=== PATIENT | male | born 1960 | race Caucasian/White ===

== ENCOUNTER 2021-05-31 19:40 | Inpatient (IN) | payer BC, SELFPAY ==
[2021-05-31] VITALS (16 sets, daily range): BP systolic 137–157; BP diastolic 96–106; PULSE 98–108; RESP 16–18; TEMP 37.1; O2SAT 94–97; BMI 35.9
--- NOTE | 2021-05-31 20:16 | CTR_ITS ---
PROCEDURE INFORMATION: Exam: CT Abdomen And Pelvis With Contrast Exam date and time: 05/31/2021 8:16 PM Age: 60 years old Clinical indication: Abdominal pain; Localized; Left; Prior surgery; Surgery date: 6+ months; Surgery type: Gb; Patient HX: C/O sudden onset L sided abd pain TECHNIQUE: Imaging protocol: Computed tomography of the abdomen and pelvis with contrast. Radiation optimization: All CT scans at this facility use at least one of these dose optimization techniques: automated exposure control; mA and/or kV adjustment per patient size (includes targeted exams where dose is matched to clinical indication); or iterative reconstruction. Contrast material: OMNI 300; Contrast volume: 95 ml; Contrast route: INTRAVENOUS (IV); COMPARISON: No relevant prior studies available. RADIATION DOSE METRICS: Total DLP (mGy-cm): 78 FINDINGS: Liver: Normal. No mass. Gallbladder and bile ducts: The gallbladder has been removed. Pancreas: Mild fatty atrophy of the pancreas. Spleen: Normal. No splenomegaly. Adrenal glands: Normal. No mass. Kidneys and ureters: There are patchy wedge-shaped regions of hypoenhancement in the left kidney. 13 mm cyst in the right kidney has benign features. No further workup recommended. Stomach and bowel: Unremarkable. No obstruction. No mucosal thickening. Appendix: No evidence of appendicitis. Intraperitoneal space: Unremarkable. No free air. No significant fluid collection. Vasculature: Unremarkable. No abdominal aortic aneurysm. Lymph nodes: Unremarkable. No enlarged lymph nodes. Urinary bladder: See Reproductive finding. Reproductive: Prostate gland indents the base of the bladder consistent with median lobe enlargement. 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 Resultant grade 1 spondylolisthesis at L5-S1. There are degenerative changes in the visualized spine. Lower lumbar broad-based disc osteophyte complexes contribute to canal and bilateral neural foraminal narrowing. Soft tissues: Small fat containing umbilical hernia. CT/CT abdomen pelvis w con* [id number] IMPRESSION: There are wedge-shaped regions of hypoenhancement in the left kidney. In the setting of sudden onset of left-sided abdominal pain, top differential is renal infarcts. Differential includes renal scarring and pyelonephritis as well. COMMENTS: Consistent with the [employer]'s Incidental Findings Committee white paper (J Am Dwayne Radiol 2018): Any incidental renal lesion less than 1 cm or classified as too small to characterize, or any incidental cystic renal lesion characterized as simple-appearing, is likely benign. No follow-up imaging is recommended for these lesions per consensus recommendations based on imaging criteria. Radiation Dose CTDIVOL = (mGy): DLP = 2016.78 (mGy-cm)
--- NOTE | 2021-05-31 20:23 | W.ED.ABDPA2 ---
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 States it is sharp in nature started roughly 2 hours ago. States pain is a 7 out of 10 denies any worsening improving factors. Denies any vomiting or diarrhea denies any fevers. He denies having pain like this before. Denies any difficulty urinating or pain with urination. He also has a abscess to his left wrist he states been there for 7 days at its been actively draining. Associated Symptoms: Denies chills, diarrhea, dysuria, fever(s), nausea and vomiting Review of Systems Const: Denies: fever(s), chills, body aches or change in appetite Eyes: Denies: blurry vision or eye discomfort ENMT: Denies: throat pain or dental pain Card: Denies: chest pain Resp: Denies: dyspnea GI: Reports: abdominal pain; Denies: nausea, vomiting or diarrhea : Denies: dysuria Musc: Denies: neck pain or back pain Skin/Breast: Denies: rash Neuro: Denies: headache(s) Psych: Denies: depression Guero/Lymph: Denies: easy bruising All/Imm: Denies: urticaria Physical Exam Const: COMMON NORMALS: no acute distress, patient oriented x3 and healthy appearing HENMT: COMMON NORMALS: normocephalic and atraumatic HEAD & SCALP: normocephalic and atraumatic Eye: COMMON NORMALS: Equal, round and reactive pupils present and EOMs intact bilaterally PUPIL: Yes Equal, round and reactive pupils present Neck/C-Spine: COMMON NORMALS: full ROM and supple Chest: COMMONS NORMALS: normal inspection of the chest and normal palpation of entire chest wall Resp: COMMON NORMALS: normal respiratory effort, No retractions, No use of accessory muscles and clear to auscultation bilaterally AUSCULTATION: clear to auscultation bilaterally Cardio: COMMON NORMALS: regular rate, regular rhythm and No murmurs present (Cardio) RATE: regular rate RHYTHM: regular rhythm GI: COMMON NORMALS: Normal to inspection, nondistended, normoactive bowel sounds present, Soft to palpation and no masses PALPATION: Yes Soft to palpation and Yes Tenderness to palpation present (GI) Details: LLQ Extremity: COMMON NORMALS: normal to inspection and full ROM Neuro: COMMON NORMALS: patient oriented x3, moves all extremities and no focal motor deficits Psych: COMMON NORMALS: mental status grossly normal, Normal thought process present and cooperative THOUGHT PROCESS: Normal thought process present Skin: COMMON NORMALS: no rashes or lesions noted NARRATIVE SKIN EXAM: Small less than 1 cm abscess to left wrist that is open and draining GENERAL SKIN EXAM: no rashes or lesions noted Course Vital Signs: Vital signs: Vital Signs Temperature 98.7 F 05/31/21 20:06 Pulse Rate 108 H 05/31/21 20:43 Respiratory Rate 16 05/31/21 20:43 Blood Pressure 137/96 05/31/21 23:30 Pulse Oximetry 96 05/31/21 21:30 MDM - Abdominal Pain MDM Narrative: Medical decision making narrative: Patient presents here with left-sided abdominal pain CT does show a renal infarction. Will start patient on Lovenox EKG shows no signs of A. fib. I spoke to hospitalist will admit. Lab Data: Labs: Lab Results 05/31/21 05/31/21 05/31/21 20:35 20:35 21:22 WBC 9.8 10^3/uL 10^3/ uL (4.0-10.0) RBC 5.56 10^6/uL H 10 ^6/uL (4.1-5.3) Hgb 15.6 g/dL g/dL (11.7-16.6) Hct 47.1 % % (42.0-52.0) MCV 84.7 fl fl (80-94) MCH 28.1 pg pg (28.0-34.0) MCHC 33.1 g/dL g/dL (30.0-36.0) RDW 13.2 % % (12.1-15.1) Plt Count 240 10^3/cmm 10^3 /cmm (130-400) MPV 8.7 fL fL (7.4-10.4) Neut % (Auto) 83.6 % % Lymph % (Auto) 9.9 % % [place] % (Auto) 5.6 % % Eos % (Auto) 0.3 % % Baso % (Auto) 0.3 % % Neut # (Auto) 8.18 10^3/uL H 10 ^3/uL (1.8-7.7) Lymph # (Auto) 1.0 10^3/uL 10^3/ uL (0.8-4.8) [place] # (Auto) 0.6 10^3/uL 10^3/ uL (0.2-0.9) Eos # (Auto) 0.0 10^3/uL 10^3/ uL (0.0-0.8) Baso # (Auto) 0.0 10^3/uL 10^3/ uL (0.0-0.1) Nucleated RBC % (a uto) 0 % % Nucleated RBCs # 0.0 /100WBC /100W BC PT 14.10 SECONDS SEC ONDS (12.1-14.9) INR 1.06 (0.8-1.2) Sodium 134 mmol/L L mmol /L (136-145) Potassium 5.1 mmol/L mmol/L (3.5-5.1) Chloride 98 mmol/L mmol/L (98-107) Carbon Dioxide 24 mmol/L mmol/L (22-29) Anion Gap 17.1 (5-19) BUN 13 mg/dL mg/dL (6-20) Creatinine 1.0 mg/dL mg/dL (0.7-1.2) GFR Calculation 76.7 mL/min L mL/ min (90-130) Glucose 162 mg/dL H mg/dL (65-115) Calculated Osmolal ity 282 mOsm/kg L mOs m/kg (285-295) Calcium 9.2 mg/dL mg/dL (8.5-10.5) Total Bilirubin 0.6 mg/dL mg/dL (0.15-1.2) AST 26 U/L U/L (0-40) ALT 38 U/L U/L (0-41) Alkaline Phosphata se 81 IU/L IU/L (40-130) Total Protein 7.4 g/dL g/dL (6.6-8.7) Albumin 4.4 g/dL g/dL (3.5-5.2) Globulin 3.0 g/dL g/dL (1.3-4.6) Lipase 22 U/L U/L (13-60) Urine Color Urine Appearance Urine pH Ur Specific Gravit y Urine Protein Urine Glucose (UA) Urine Ketones Urine Blood Urine Nitrate Urine Bilirubin Urine Urobilinogen Ur Leukocyte Mildred ase 05/31/21 22:28 WBC RBC Hgb Hct MCV MCH MCHC RDW Plt Count MPV Neut % (Auto) Lymph % (Auto) [place] % (Auto) Eos % (Auto) Baso % (Auto) Neut # (Auto) Lymph # (Auto) [place] # (Auto) Eos # (Auto) Baso # (Auto) Nucleated RBC % (a uto) Nucleated RBCs # PT INR Sodium Potassium Chloride Carbon Dioxide Anion Gap BUN Creatinine GFR Calculation Glucose Calculated Osmolal ity Calcium Total Bilirubin AST ALT Alkaline Phosphata se Total Protein Albumin Globulin Lipase Urine Color Yellow (Yellow) Urine Appearance Clear (CLEAR) Urine pH 6.5 (5-7) Ur Specific Gravit y 1.010 (1.005-1.030) Urine Protein Neg (Negative) Urine Glucose (UA) Norm (Normal) Urine Ketones Negative (Negative) Urine Blood Neg (Negative) Urine Nitrate Negative (Negative) Urine Bilirubin Neg (Negative) Urine Urobilinogen 1 mg/dL H mg/dL (Negative) Ur Leukocyte Mildred ase Negative (Negative) Imaging Data ^: CT Abd/Pel: Attestation: I personally reviewed and interpreted this imaging study as follows: Radiologist's impression: [address] [address] [address] Scan Report Signed with Carey Patient: Ten Fournier Unit #: [id number] : 1960 Age/Sex: 60 / M ADM Date: 05/31/21 Loc: ER Room/Bed: Attending Dr: Ordering Provider/Ordering MD: Manuel Stark MD Date of Service: 05/31/21 Procedure(s): CT abdomen pelvis w con* [id number] Accession Number(s): [id number] Report Number: [id number]/CT abdomen pelvis w con* [id number] CRITICAL RESULT: The study was personally discussed on the telephone with MANUEL Lund on 05/31/2021 11:15 PM CDT. The results were understood and acknowledged. Radiation Dose CTDIVOL = (mGy): DLP = 2016.78 (mGy-cm) Addendum Dictated By: Zina Basurto MD Addendum Signed By: Zina Basurto MD Signed Date/Time: 05/31/21 1067 Addendum Cosigned By: PROCEDURE INFORMATION: Exam: CT Abdomen And Pelvis With Contrast Exam date and time: 05/31/2021 8:16 PM Age: 60 years old Clinical indication: Abdominal pain; Localized; Left; Prior surgery; Surgery date: 6+ months; Surgery type: Gb; Patient HX: C/O sudden onset L sided abd pain TECHNIQUE: Imaging protocol: Computed tomography of the abdomen and pelvis with contrast. Radiation optimization: All CT scans at this facility use at least one of these dose optimization techniques: automated exposure control; mA and/or kV adjustment per patient size (includes targeted exams where dose is matched to clinical indication); or iterative reconstruction. Contrast material: OMNI 300; Contrast volume: 95 ml; Contrast route: INTRAVENOUS (IV); COMPARISON: No relevant prior studies available. RADIATION DOSE METRICS: Total DLP (mGy-cm): 2016.78 FINDINGS: Liver: Normal. No mass. Gallbladder and bile ducts: The gallbladder has been removed. Pancreas: Mild fatty atrophy of the pancreas. Spleen: Normal. No splenomegaly. Adrenal glands: Normal. No mass. Kidneys and ureters: There are patchy wedge-shaped regions of hypoenhancement in the left kidney. 13 mm cyst in the right kidney has benign features. No further workup recommended. Stomach and bowel: Unremarkable. No obstruction. No mucosal thickening. Appendix: No evidence of appendicitis. Intraperitoneal space: Unremarkable. No free air. No significant fluid collection. Vasculature: Unremarkable. No abdominal aortic aneurysm. Lymph nodes: Unremarkable. No enlarged lymph nodes. Urinary bladder: See Reproductive finding. Reproductive: Prostate gland indents the base of the bladder consistent with median lobe enlargement. 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 Resultant grade 1 spondylolisthesis at L5-S1. There are degenerative changes in the visualized spine. Lower lumbar broad-based disc osteophyte complexes contribute to canal and bilateral neural foraminal narrowing. Soft tissues: Small fat containing umbilical hernia. CT/CT abdomen pelvis w con* [id number] IMPRESSION: There are wedge-shaped regions of hypoenhancement in the left kidney. In the setting of sudden onset of left-sided abdominal pain, top differential is renal infarcts. Differential includes renal scarring and pyelonephritis as well. COMMENTS: Consistent with the [employer]'s Incidental Findings Committee white paper (J Am Dwayne Radiol 2018): Any incidental renal lesion less than 1 cm or classified as too small to characterize, or any incidental cystic renal lesion characterized as simple-appearing, is likely benign. No follow-up imaging is recommended for these lesions per consensus recommendations based on imaging criteria. Radiation Dose CTDIVOL = (mGy): DLP = 2016.78 (mGy-cm) Dictated By: Zina Basurto MD Signed By: Zina Basurto MD Signed Date/Time: 05/31/212239 DD/ 15 EKG Data ^: EKG 1: Attestation: I personally reviewed and interpreted this EKG as follows: EKG interpretation date: 05/31/21 EKG interpretation time: 22:56 Interpretation: nsr hr [address] or t wave abnormalities qrs 104 qtc 376 Discharge Plan Discharge Patient Disposition: Admitted As Inpatient Admit Provider: Jennifer Laura Clinical Impression: Infarction of kidney Condition: Stable Coding Level of Care Code ED Seed Laboratory Assistant for Chg Fwd Exam Comprehensive
[2021-05-31] MEDS: morphine 4 mg/mL SDV 1 mL IVP (20:28)
[2021-05-31] MEDS: ondansetron 2 mg/ML SDV 2 mL 4 MG IVP (20:28)
[2021-05-31 20:49] LABS: Basophils % 0.3 %; Eosinophils % 0.3 %; Hematocrit 47.1 % (42.0-52.0); Hemoglobin 15.6 g/dL (11.7-16.6); Lymphocytes % 9.9 %; Mean Corpuscular HGB Conc 33.1 g/dL (30.0-36.0); Mean Corpuscular Hemoglobin 28.1 pg (28.0-34.0); Mean Corpuscular Volume 84.7 fl (80-94); Mean Platelet Volume 8.7 fL (7.4-10.4); Monocytes # 0.6 10^3/uL (0.2-0.9); Monocytes % 5.6 %; Neutrophils # 8.18 10^3/uL (1.8-7.7); Neutrophils % 83.6 %; Nucleated Red Blood Cells % 0 %; Platelet Count 240 10^3/cmm (130-400); Red Blood Count 5.56 10^6/uL (4.1-5.3); Red Cell Distribution Width 13.2 % (12.1-15.1); White Blood Count 9.8 10^3/uL (4.0-10.0)
[2021-05-31 21:10] LABS: Alanine Aminotransferase 38 U/L (0-41); Albumin Level 4.4 g/dL (3.5-5.2); Alkaline Phosphatase 81 IU/L (40-130); Anion Gap 17.1 (5-19); Aspartate Amino Transferase 26 U/L (0-40); Blood Urea Nitrogen 13 mg/dL (6-20); Calcium 9.2 mg/dL (8.5-10.5); Carbon Dioxide 24 mmol/L (22-29); Chloride 98 mmol/L (98-107); Glomerular Filtration Rate 76.7 mL/min (90-130); Glucose 162 mg/dL (65-115); Lipase 22 U/L (13-60); Osmolality Calculated 282 mOsm/kg (285-295); Potassium 5.1 mmol/L (3.5-5.1); Sodium 134 mmol/L (136-145); Total Bilirubin 0.6 mg/dL (0.15-1.2); Total Protein 7.4 g/dL (6.6-8.7)
[2021-05-31] MEDS: iohexol 300 mg/mL 100 mL Btl IV (21:22)
--- NOTE | 2021-05-31 22:50 | ECG_ITS ---
[facility] Test Date: 2021-05-31 Pat Name: Ten Fournier Department: Room: Gender: Male Bisque Brusher: : 1960 Requested By: Michelle Stark Order Number: [id number] Enmanuel MD: Melyssa Infante M.D. Measurements Intervals [place] Rate: 86 P: 7 SD: 199 QRS: 41 QRSD: 104 T: 24 QT: 333 QTc: 400 Interpretive Statements SINUS RHYTHM POSSIBLE RIGHT VENTRICULAR CONDUCTION DELAY [RSR (QR) IN V1/V2] No previous ECG available for comparison Electronically Signed On 06-01-2021 21:06:47 CDT by Melyssa Infante M.D. [id number]
[2021-05-31 22:55] LABS: Add Urine Microscopic? NO; Charge for UA Resulting for Rev
[2021-05-31 22:59] LABS: Bilirubin Urine Neg (Negative); Blood Urine Neg (Negative); Glucose Urine UA Norm (Normal); Ketones Urine Negative (Negative); Leukocyte Esterase Urine Negative (Negative); Nitrate Urine Negative (Negative); Protein Urine Neg (Negative); Urine Appearance Clear (CLEAR); Urine Color Yellow (Yellow); Urobilinogen Urine 1 mg/dL (Negative); pH Urine 6.5 (5-7)
[2021-05-31 23:02] LABS: INR 1.06 (0.8-1.2)
[2021-05-31] MEDS: enoxaparin 120 mg/0.8 mL Syringe SUBCUT (23:41)
[2021-06-01] VITALS (8 sets, daily range): BP systolic 119–164; BP diastolic 78–97; PULSE 78–100; RESP 16–18; TEMP 36.4–37.3; O2SAT 95–98; BMI 35.9
--- NOTE | 2021-06-01 02:26 | P.HP_ITS ---
Providers/Chief Complaint Admitting Physician: Jennifer Laura Chief Complaint: ABD Pain Sharp History of Present Illness 60-year-old male with no significant past medical history who presented to the hospital with abdominal pain. Acute onset. Primarily left lower quadrant. Noted nausea however no emesis. Subjective fever and chills. Denies chest pain or shortness of breath. Condition noted to have left hand pain, redness, and area of drainage from recent bug bite. He felt it may have been from a spider about 4 days prior. Noted increase in hand swelling as well. Laboratory workup on arrival showed a WBC of 9.8, hemoglobin of 15.6, hematocrit 47.1 and platelet count 240. INR 1.06. Sodium 134, potassium 5.1, chloride 98, bicarb 24, BUN 13 creatinine 1.0. LFTs and urinalysis within normal limits. CT of abdomen pelvis with contrast showed a wedge-shaped regions of hypo enhancement in the left kidney suspected to be renal infarcts. Review of Systems General: Reports: 10 or more systems reviewed and unremarkable except in HPI and below PFSH Acute PFSH: Medical History No pertinent family history No pertinent past medical history Surgical History No pertinent past surgical history Vitals/I&O/Wt Last Vital Signs Temp 98.5 F 06/01/21 00:07 Pulse 89 06/01/21 00:07 Resp 18 06/01/21 00:07 BP 154/96 06/01/21 00:07 Pulse Ox 97 06/01/21 00:07 Weight last 48 hrs Weight 127.006 kg Weight 127.006 kg Physical Exam Narrative: EXAM NARRATIVE: General: alert, awake on RA HEENT: Grossly unremarkable CVS: NSR Chest: nonlabored respiration Abd: Non-distended, mild tenderness to deep palpation on left Ext : no lower extremity edema, left hand wound with central eschar, surrounding erythema, with hand swelling Data : 05/31/21 20:35 05/31/21 20:35 A&P Additional A&P Information Acute abdominal pain due to suspected left renal infarct Possible due to thromboembolism Lovenox 1mg/kg/q12hr ordered Monitor on tele ? no known hx of afib May need event monitor at discharge Work up for occult arrythmia Left hand cellulitis with possible abscess Blood culture x 2 Rocephin 2g IV q24hr No hx of MRSA Wound culture May consider non-vascular US Procalcitonin in am DVT ppx Lovenox as noted above. Attestations Medical Necessity Statement*: Anticipate over 2 midnights stay in hospital for evaluation treatment Time Spent in Patient Care: Greater than 35 minutes (>than 50% of time spent in counselling and/or direct pt care on unit) . 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
[2021-06-01] MEDS: sodium chloride 0.9% 1,000 ML 75 ML IV ×2 (06:20→19:37)
[2021-06-01] MEDS: cefTRIAXone 2,000 MG in sodium chloride 0.9% (plus) 50 ML 100 MG IV (06:20)
[2021-06-01 07:49] LABS: Basophils % 0.6 %; Eosinophils # 0.1 10^3/uL (0.0-0.8); Eosinophils % 0.8 %; Hematocrit 45.5 % (42.0-52.0); Hemoglobin 15.1 g/dL (11.7-16.6); Lymphocytes # 1.5 10^3/uL (0.8-4.8); Lymphocytes % 23.2 %; Mean Corpuscular HGB Conc 33.2 g/dL (30.0-36.0); Mean Corpuscular Volume 84.3 fl (80-94); Mean Platelet Volume 8.8 fL (7.4-10.4); Monocytes # 0.6 10^3/uL (0.2-0.9); Monocytes % 9.6 %; Neutrophils # 4.14 10^3/uL (1.8-7.7); Neutrophils % 65.5 %; Nucleated Red Blood Cells % 0 %; Platelet Count 250 10^3/cmm (130-400); Red Cell Distribution Width 13.5 % (12.1-15.1); White Blood Count 6.3 10^3/uL (4.0-10.0)
[2021-06-01 08:16] LABS: Procalcitonin 0.19 ng/mL (0-0.5); Thyroid Stimulating Hormone 1.35 uIU/mL (0.27-4.20)
[2021-06-01 08:27] LABS: Alanine Aminotransferase 57 U/L (0-41); Albumin Level 4.1 g/dL (3.5-5.2); Alkaline Phosphatase 88 IU/L (40-130); Anion Gap 14.2 (5-19); Aspartate Amino Transferase 101 U/L (0-40); Blood Urea Nitrogen 13 mg/dL (6-20); Calcium 8.9 mg/dL (8.5-10.5); Carbon Dioxide 26 mmol/L (22-29); Chloride 99 mmol/L (98-107); Chol HDL Ratio 3.46 mg/dL (1.0-5.00); Cholesterol 128 mg/dL (0-200); Globulin 2.7 g/dL (1.3-4.6); Glomerular Filtration Rate 86.7 mL/min (90-130); Glucose 114 mg/dL (65-115); HDL Cholesterol 37 mg/dL (60-100); LDL Cholesterol Calculated 72 mg/dL (50-129); LDL HDL Ratio 1.95 RATIO (0.00-3.22); Osmolality Calculated 281 mOsm/kg (285-295); Potassium 4.2 mmol/L (3.5-5.1); Sodium 135 mmol/L (136-145); Total Bilirubin 0.8 mg/dL (0.15-1.2); Total Protein 6.8 g/dL (6.6-8.7); Triglycerides 94 mg/dL (0-150)
[2021-06-01] MEDS: pantoprazole DR 40 mg Tablet PO (08:27)
[2021-06-01] MEDS: acetaminophen 325 mg Tablet 650 MG PO (08:28)
[2021-06-01 08:33] LABS: Estmated Average Glucose 148; Hemoglobin A1C 6.8 % (4.0-6.0)
--- NOTE | 2021-06-01 08:40 | USCV_ITS ---
Ten Fournier Age: 60 Gender: M : 1960 Exam Date: 06/01/2021 13:41 Ordering Phys: Oneyda Alfred MD Technologist: Exam Location: [facility] [place] Indication: EMBOLI BP: 143 / 82 HR: 87 Rhythm: Sinus Technical Quality: Adequate MEASUREMENTS (Male / Female) Normal Values 2D ECHO LV Diastolic Diameter PLAX 5.1 cm 4.2 - 5.9 / 3.9 - 5.3 cm LV Systolic Diameter PLAX 2.9 cm IVS Diastolic Thickness 1.1 cm 0.6 - 1.0 / 0.6 - 0.9 cm IVS Systolic Thickness 1.3 cm LVPW Diastolic Thickness 1.0 cm 0.6 - 1.0 / 0.6 - 0.9 cm LVPW Systolic Thickness 1.3 cm LVOT Diameter 2.0 cm LV Ejection Fraction 2D Teich 68.5 % LV Ejection Fraction MOD 2C 59.4 % LV Ejection Fraction 2C AL 59.3 % LA Diameter 3.5 cm LA Width 4.0 cm LA Height 5.0 cm RA Width 3.3 cm RA Height 5.0 cm M-MODE LV Diastolic Diameter MM 5.1 cm 4.2 - 5.9 / 3.9 - 5.3 cm LV Systolic Diameter MM 3.7 cm LV Ejection Fraction MM Teich 52.5 % IVS Diastolic Thickness MM 1.0 cm 0.6 - 1.0 / 0.6 - 0.9 cm IVS Systolic Thickness MM 1.9 cm LVPW Diastolic Thickness MM 1.3 cm 0.6 - 1.0 / 0.6 - 0.9 cm LVPW Systolic Thickness MM 1.9 cm RV Diastolic Diameter MM 2.0 cm DOPPLER AV Peak Velocity 119.0 cm/s LVOT Peak Velocity 119.0 cm/s AV Area Cont Eq vti 2.9 cm squared AV Area Cont Eq pk 3.3 cm squared MV Area PHT 5.0 cm squared Mitral E to A Ratio 1.1 MV E' Velocity 50.5 cm/s Mitral E to MV E' Ratio 8.6 Mitral E to LV E' Lateral Ratio 8.1 Mitral E to LV E' Septal Ratio 9.3 TR Peak Velocity 176.3 cm/s TR Peak Gradient 12.4 mmHg TV Peak E Velocity 82.0 cm/s Right Atrial Pressure 3.0 mmHg Pulmonary Artery Systolic Pressu 15.4 mmHg PV Peak Velocity 145.0 cm/s FINDINGS Left Ventricle Normal left ventricular size, systolic function and wall thickness, with no regional wall motion abnormalities. Left ventricular ejection fraction is estimated at 65 %. Normal diastolic function. Right Ventricle Normal right ventricular size and systolic function. RVSP could not be calculated due to incomplete tricuspid regurgitation velocity profile. Right Atrium Normal right atrial size. Small PFO with left to right shunt by color doppler. Left Atrium Mildly increased left atrial size. Mitral Valve Structurally normal mitral valve. No mitral valve stenosis. Trace mitral valve regurgitation. Aortic Valve Structurally normal trileaflet aortic valve. No aortic valve stenosis. No aortic valve regurgitation. Tricuspid Valve Structurally normal tricuspid valve. Trace to mild tricuspid valve regurgitation. Pulmonic Valve Pulmonic valve not well visualized. No pulmonary valve stenosis. Trace pulmonary valve regurgitation. Pericardium No pericardial effusion. Aorta Normal size aortic root. CONCLUSIONS 1. Normal left ventricular size, systolic function and wall thickness, with no regional wall motion abnormalities. Left ventricular ejection fraction is estimated at 65 %. Normal diastolic function. 2. Normal right ventricular size and systolic function. 3. Small PFO with left to right shunt by color doppler. 4. Trace to mild tricuspid valve regurgitation. 5. No prior similar studies to compare. Melyssa Infante MD (Electronically Signed) Final Date: 01 June 2021 19:41 S
--- NOTE | 2021-06-01 09:04 | PM.PN ---
Subjective Subjective: Interval history: Patient seen and examined today. He is asymptomatic. Does not have any past medical history and is not on any medications at home. He does state a spider bit him about 4 days ago and his hand is slightly swollen. He presented with fever and some chills and also had abdominal pain on his left side. Other than that he was okay. Denies a cough or any recent respiratory illness. Vitals/I&O/Wt Last Vital Signs Temp 98.3 F 06/01/21 08:00 Pulse 81 06/01/21 08:00 Resp 18 06/01/21 08:00 BP 138/88 06/01/21 08:00 Pulse Ox 97 06/01/21 08:00 05/31/21 06/01/21 06/01/21 22:59 06:59 14:59 Intake Total 50 / 50 500 / 500 Output Total 400 / 400 Balance 50 / 50 100 / 100 Weight last 48 hrs Weight 133.265 kg Weight 127.006 kg Weight 127.006 kg Physical Exam Narrative: EXAM NARRATIVE: General: Alert oriented x3, patient seen sitting up in bed appearing comfortable HEENT: Normocephalic, atraumatic, EOMI, breathing room air Cardio: Regular rate rhythm, normal S1-S2, no murmurs rubs gallops,_ Respiratory: Good bilateral air entry, no wheezes no rhonchi appreciated GI: Abdomen soft, nontender, nondistended, bowel sounds + No flank tenderness noted, kidney punch test negative. Behavior: Appropriate and cooperative Extremities: Pulses 2+, no edema, no cyanosis. Hands have multiple lesions that are scarred from thorns. 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 No lesions on toes. No microinfarcts noted on extremities. No echymosis on extremities. Data : 06/01/21 07:17 06/01/21 07:17 Micro: Microbiology 06/01/21 07:10 Blood Culture - Preliminary Blood SPECIMEN COLLECTED 06/01/21 07:17 Blood Culture - Preliminary Blood SPECIMEN COLLECTED A&P Additional A&P Information Acute abdominal pain due to suspected left renal infarct Possible due to thromboembolism Lovenox 1mg/kg/q12hr ordered Monitor on tele ? no known hx of afib Will need event monitor at discharge Work up for occult arrythmia Have ordered echo cardiogram with bubble study Have ordered MRI/MRA of abdomen/pelvis for renal infarct We will check DOMI with reflex, ANCA, P-ANCA, urinalysis, urine eosinophils, ESR, CRP Nephrology has been consulted. Left hand cellulitis with possible abscess Blood culture x 2 We will continue patient on ceftriaxone for now. No hx of MRSA Wound culture May consider non-vascular US DVT ppx Lovenox as noted above. Attestations Medical Necessity Statement*: Care is expected to cross 2 midnights. 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
--- NOTE | 2021-06-01 10:35 | PC.CHAP ---
Pastoral Care Encounter/Spiritual Assessment Type of Contact [] Declined operations advisor visit [] Patient/Family/Request visit [] Outpatient visit [] Follow-up visit [] Physician referral [] Code/Alert [X] Routine visit [] Staff referral [] Actively dying [] Patient sleeping [] Family support [] [] Out of room [] Palliative care [] [] Receiving care in room [] Pre-surgical visit [] Trauma [] Long length of stay [] ICU visit [] Other: Relational/Emotional Strength [X] Patient feels connected with others/family/visitors/staff [] Distress [] Loneliness/isolation [] Abandonment Spirituality of Patient [] Person of Livia [] Attends Anabaptism of their Livia [] Believes in Prayer [] Reads Bible or Yazidi materials [X] There are Spiritual issues to be addressed Wellness Health Coach Interventions [] Prayer [X] Active listening [X] Non-anxious presence [] Spiritual/emotional support [] Crisis/trauma care [] Spiritual counseling [] Bereavement support [] Provided bereavement packet [] Provided Bible/devotional materials [] Provided toy/stuffed animal, coloring book to patient or family member [] Provided Communion [] Anointing/[place] [] Salvation [X] Completed spiritual assessment [] Other: Impact on Illness or Injury [] Angry [] Fearful [] Anxious [] Often cries [] Exhaustion [] Unable to work [] Unable to attend druze [] Unable to walk/stand [] Unable to read [] Unable to drive [] Unable to eat/drink [] Unable to sleep [] Unable to be with family [] Patient intubated [] Other: Summary: Brief visit as pt was tired. Per pt, he experienced a blood clot near kidney. He was admitted from ER last night. Pt reports and two adult sons living in the home and his primary support system. Pt retired earlier this year. When asked about livia family, pt replied, Not so much. Pt declined prayer or other operations advisor services at this time. Time spent with patient: 5 - 7 mins
--- NOTE | 2021-06-01 14:54 | MRR_ITS ---
PROCEDURE INFORMATION: Exam: MRA Abdomen With or Without Contrast Exam date and time: 06/01/2021 2:54 PM Age: 60 years old Clinical indication: Abdominal pain; Acute; Additional info: Renal infarct, with and without contrast TECHNIQUE: Imaging protocol: Magnetic resonance angiography of the abdomen with or without contrast. Contrast material: MULTIHANCE; Contrast volume: 20 ml; Contrast route: INTRAVENOUS (IV); COMPARISON: CT abdomen pelvis w con* [id number] 05/31/2021 9:19 PM FINDINGS: Aorta: Unremarkable. No aneurysm. No dissection. No hemodynamically significant stenosis. Celiac trunk and mesenteric arteries: Unremarkable. No hemodynamically significant stenosis. No occlusion. 13 mm simple cyst in the right kidney. Motion artifact does moderately limit the sensitivity of this examination. Mild left perinephric fluid stranding. Motion artifact on the postcontrast images limits evaluation of the left kidney enhancement however there does seem to be ill-defined hypoenhancement in the regions of wedge-shaped hypoenhancement seen on the prior CT scan. There are no filling defects seen in the left renal artery or left segmental renal arteries. Please note evaluation is limited secondary to artifact. MR/MR angio abdomen wo/w [id number] IMPRESSION: 1. No filling defects are seen in the left renal artery or segmental renal arteries. This is not optimally evaluated secondary to motion artifact. 2. There is mild left perinephric fluid stranding.Motion artifact on the postcontrast images limits evaluation of the left kidney enhancement however there does seem to be ill-defined hypoenhancement in the regions of wedge-shaped hypoenhancement seen on the prior CT scan. Radiation Dose CTDIVOL = (mGy): DLP = (mGy-cm)
--- NOTE | 2021-06-01 14:59 | USCV_ITS ---
Ten Fournier Age: 60 Gender: M : 1960 Exam Date: 06/01/2021 15:17 Ordering Phys: Oneyda Alfred MD Technologist: Exam Location: [facility] – [place] Indication: RENAL INFARCT BP: / HR: Rhythm: Sinus Technical Quality: Adequate MEASUREMENTS (Male / Female) Normal Values FINDINGS Left Ventricle Right Ventricle Right Atrium Left Atrium Mitral Valve Aortic Valve Tricuspid Valve Pulmonic Valve Pericardium Aorta CONCLUSIONS 1. This is a bubble study (TDS). 2. Small intracardiac shunt cannot be completely ruled out. 3. ISAAC may be consider, if clinically indicated. Melyssa Infante MD (Electronically Signed) Final Date: 01 June 2021 19:48 S
[2021-06-01 16:38] LABS: Bilirubin Urine Neg (Negative); Blood Urine Neg (Negative); Glucose Urine UA Norm (Normal); Ketones Urine Negative (Negative); Leukocyte Esterase Urine Negative (Negative); Nitrate Urine Negative (Negative); Protein Urine Neg (Negative); Urine Appearance Clear (CLEAR); Urine Color Yellow (Yellow); Urobilinogen Urine Norm (Negative); pH Urine 5 (5-7)
[2021-06-01 16:41] LABS: Add Urine Culture? No; Bacteria Urine TRACE /hpf
[2021-06-01 17:42] LABS: Eosinophil Urine No Eosinophils Seen; Urine Eosinophil Count 0 (0-0)
[2021-06-01 18:03] LABS: C Reactive Protein 50.1 mg/L (0.0-4.9)
[2021-06-01] MEDS: gadobenate dimeglumine 20 mL vial IV (18:49)
--- NOTE | 2021-06-01 21:32 | PC.NURSE ---
RN called telenephrology and message left in regards to MRI results being read. Awaiting return call.
--- NOTE | 2021-06-01 21:36 | PC.NURSE ---
Return call from Dr. Aragon. Made aware of MRI results. No new orders tonight and will assess pt tomorrow.
[2021-06-01] MEDS: enoxaparin 100 mg/mL Syringe SUBCUT (22:55)
[2021-06-01] MEDS: enoxaparin 30 mg/0.3 mL Syringe SUBCUT (22:56)
[2021-06-02] VITALS (7 sets, daily range): BP systolic 124–155; BP diastolic 78–95; PULSE 68–94; RESP 18; TEMP 36.7–37.7; O2SAT 95–98
[2021-06-02 00:03] LABS: Chol HDL Ratio 3.61 mg/dL (1.0-5.00); Cholesterol 130 mg/dL (0-200); Creatine Phosphokinase 239 U/L (39-308); LDL Cholesterol Calculated 75 mg/dL (50-129); Triglycerides 93 mg/dL (0-150); VLDL Cholestrol Calculation 19 mg/dL (0-30)
[2021-06-02 00:46] LABS: HDL Cholesterol 36 mg/dL (60-100)
[2021-06-02 05:05] LABS: Basophils % 0.4 %; Eosinophils # 0.1 10^3/uL (0.0-0.8); Eosinophils % 1.1 %; Hematocrit 42.6 % (42.0-52.0); Hemoglobin 14.3 g/dL (11.7-16.6); Lymphocytes # 1.5 10^3/uL (0.8-4.8); Lymphocytes % 19.7 %; Mean Corpuscular HGB Conc 33.6 g/dL (30.0-36.0); Mean Corpuscular Hemoglobin 28.4 pg (28.0-34.0); Mean Corpuscular Volume 84.7 fl (80-94); Mean Platelet Volume 9.1 fL (7.4-10.4); Monocytes # 0.6 10^3/uL (0.2-0.9); Monocytes % 8.4 %; Neutrophils # 5.25 10^3/uL (1.8-7.7); Neutrophils % 70.3 %; Nucleated Red Blood Cells % 0 %; Platelet Count 213 10^3/cmm (130-400); Red Blood Count 5.03 10^6/uL (4.1-5.3); Red Cell Distribution Width 13.2 % (12.1-15.1); White Blood Count 7.5 10^3/uL (4.0-10.0)
[2021-06-02] MEDS: cefTRIAXone 2,000 MG in sodium chloride 0.9% (plus) 50 ML 100 MG IV (05:29)
--- NOTE | 2021-06-02 06:00 | USCV_ITS ---
Ten Fournier Age: 61 Gender: M : 1960 Exam Date: 06/02/2021 06:41 Ordering Phys: Oneyda Alfred MD Technologist: Herminia Cueva [place] [facility] [place]: H/O DVT HISTORY: History of deep venous thrombosis. PROCEDURES: Venous duplex imaging was performed in bilateral lower extremities. The following venous structures were evaluated: common femoral vein, profunda vein, proximal portion of the greater saphenous vein, superficial femoral vein, and the popliteal vein. In addition, the posterior tibial and peroneal trunk were evaluated. FINDINGS: There appears to be partial or residual thrombus in the Left GSV below knee. All other veins imaged appear compressible and free of thrombus at this time. CONCLUSIONS Non occlusive weblike thrombus LEFT GSV below the knee. Remainder of the lower extremity vessels are patent. Gennaro Monet MD (Electronically Signed) Final Date: 02 June 2021 15:53 S
[2021-06-02 07:16] LABS: Alanine Aminotransferase 41 U/L (0-41); Albumin Level 3.6 g/dL (3.5-5.2); Alkaline Phosphatase 73 IU/L (40-130); Anion Gap 14.1 (5-19); Aspartate Amino Transferase 41 U/L (0-40); Blood Urea Nitrogen 13 mg/dL (6-20); Calcium 8.7 mg/dL (8.5-10.5); Carbon Dioxide 24 mmol/L (22-29); Chloride 99 mmol/L (98-107); Globulin 3.3 g/dL (1.3-4.6); Glomerular Filtration Rate 68.5 mL/min (90-130); Glucose 113 mg/dL (65-115); Magnesium 1.8 mg/dL (1.7-2.3); Osmolality Calculated 277 mOsm/kg (285-295); Phosphorus 2.8 mg/dL (2.5-4.5); Potassium 4.1 mmol/L (3.5-5.1); Sodium 133 mmol/L (136-145); Total Bilirubin 0.5 mg/dL (0.15-1.2); Total Protein 6.9 g/dL (6.6-8.7)
[2021-06-02] MEDS: acetaminophen 325 mg Tablet 650 MG PO (08:09)
[2021-06-02] MEDS: pantoprazole DR 40 mg Tablet PO (08:09)
[2021-06-02] MEDS: sodium chloride 0.9% 1,000 ML 75 ML IV (08:10)
--- NOTE | 2021-06-02 09:41 | PC.CHAP ---
Pastoral Care Encounter/Spiritual Assessment Type of Contact [] Declined vaccine key customer leader visit [] Patient/Family/Request visit [] Outpatient visit [] Follow-up visit [] Physician referral [] Code/Alert [x] Routine visit [] Staff referral [] Actively dying [] Patient sleeping [] Family support [] [] Out of room [] Palliative care [] [] Receiving care in room [] Pre-surgical visit [] Trauma [] Long length of stay [] ICU visit [] Other: Relational/Emotional Strength [] Patient feels connected with others/family/visitors/staff [] Distress [] Loneliness/isolation [] Abandonment Spirituality of Patient [] Person of Livia [] Attends Presybeterian of their Livia [] Believes in Prayer [] Reads Bible or Mandaeism materials [] There are Spiritual issues to be addressed 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 [] Prayer [] Active listening [] Non-anxious presence [] Spiritual/emotional support [] Crisis/trauma care [] Spiritual counseling [] Bereavement support [] Provided bereavement packet [] Provided Bible/devotional materials [] Provided toy/stuffed animal, coloring book to patient or family member [] Provided Communion [] Anointing/[place] [] Salvation [] Completed spiritual assessment [] Other: Impact on Illness or Injury [] Angry [] Fearful [] Anxious [] Often cries [] Exhaustion [] Unable to work [] Unable to attend presybeterian [] Unable to walk/stand [] Unable to read [] Unable to drive [] Unable to eat/drink [] Unable to sleep [] Unable to be with family [] Patient intubated [] Other: Summary refused prayer Time spent with patient 10 min
--- NOTE | 2021-06-02 11:49 | PM.PN ---
Subjective Subjective: Interval history: Normal sinus rhythm, hypertensive, patient is endorsing dull left-sided abdominal pain however feeding better, did discuss case with Dr. Tamayo who recommended against PFO closure device Venous Doppler study pending DOMI results pending No sig eosinophils on urinalysis or CBC Vitals/I&O/Wt Last Vital Signs Temp 98.4 F 06/02/21 07:50 Pulse 81 06/02/21 07:50 Resp 18 06/02/21 07:50 BP 155/92 06/02/21 07:50 Pulse Ox 97 06/02/21 07:50 06/01/21 06/02/21 06/02/21 22:59 06:59 14:59 Intake Total 1476.25 / 2456.25 50 / 2506.25 941.25 / 941.25 Output Total 850 / 1250 925 / 2175 Balance 626.25 / 1206.25 -875 / 331.25 941.25 / 941.25 Weight last 48 hrs Weight 134.445 kg Weight 133.265 kg Weight 127.006 kg Weight 127.006 kg Physical Exam Narrative: EXAM NARRATIVE: Patient sitting comfortably in his bed Saturating well on room air Abdomen soft nontender bowel sound present Bilateral breath sounds without adventitious rhonchi or crackles EOMI, PERRLA no neurological deficits Left leg with varicose veins slightly more swollen as compared to right leg No neurological/focal deficits S1, S2, no significant murmur appreciated Data : 06/02/21 04:27 06/02/21 06:26 Micro: Microbiology 06/01/21 07:10 Blood Culture - Preliminary Blood NEGATIVE TO DATE 06/01/21 07:17 Blood Culture - Preliminary Blood NEGATIVE TO DATE A&P Assessment and plan (1) Infarction of kidney: Status: Acute (2) Varicose veins of both lower extremities: Status: Acute (3) Sporotrichosis: Status: Acute (4) Glucose intolerance: Status: Acute Additional A&P Information Infarct of left kidney No signs of hematuria, patient is hypertensive, Venous Dopplers are pending, no signs of stroke Small PFO, PFO closure device not indicated at this point, I have discussed this case with Dr. Castro briefly who recommended high-dose aspirin Will be discharged home with event monitor tomorrow No occult arrhythmia detected DOMI profile, c-ANCA p-ANCA pending Sporotrichosis Added itraconazole and continue ceftriaxone for nonpurulent cellulitis of left arm Doxycycline for MRSA coverage as well Varicose veins Venous Doppler result pending Left leg looks more swollen as compared to right Glucose intolerance hemoglobin A1c 6.8 Planning to discharge him tomorrow with event monitor Regular diet DVT prophylaxis currently on therapeutic Lovenox Attestations Medical Necessity Statement*: Plan is to discharge him tomorrow Time Spent in Patient Care: 16 - 35 minutes Coding Level of Care Code 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
[2021-06-02] MEDS: lisinopril 10 mg Tablet PO (12:13)
[2021-06-02] MEDS: enoxaparin 100 mg/mL Syringe SUBCUT ×2 (12:13→22:07)
[2021-06-02] MEDS: doxycycline 100 mg Tablet PO ×2 (12:14→18:42)
--- NOTE | 2021-06-02 12:51 | PM.CONSULT ---
Providers/Reason For Consult Consulting Physician/Specialty*: Nephrology Reason for Consult*: Eval for renal infarction Attending Physician: Miguel Angel Aguilera MD History of Present Illness History of Present Illness Thank you for consultation, today had the pleasure of reviewing this 61-year-old gentleman who presented to the hospital on Wednesday evening with severe left flank pain. Subsequent imaging of his abdomen demonstrated a wedge-shaped region of hypoenhancement in the left kidney consistent with renal infarction. Subsequent MRI of the abdomen redemonstrated this area however MRI revealed no additional vasculopathy. Echocardiogram demonstrated a small PFO with [id number] shunt. Cardiology has been curb sided, do not wish to intervene on the PFO at this time. He denies any blue toes, livedo reticularis, stroke symptoms, any other episodes similar to this. He really denies any other chronic diseases including heart disease, lung disease, vascular disease, diabetes, hypertension etc. Prior to hospitalization he did not take any medication frequently. No known nephrotoxic exposures. No extremity edema, shortness of breath or other hypervolemic symptoms. He currently feels significantly improved and is looking forward to discharge. Review of Systems Narrative: ROS - 12 point review of systems completed per HPI and subjective assessment, this includes Constitutional: No weakness, fatigue Respiratory: No SOB on exertion, comfortable at rest CardioVasc: No chest pain, palpitations Gastrointestinal: No nausea, no vomiting Neurological: No seizures, no AMS Derm: No new rashes, lesions or wounds Immunological: No seasonal and no food allergies Meds/Allergies Home Medications and Allergies Home Medications Medication Instructions Recorded Confirmed Last Taken Type No Known Home Medications 06/01/21 06/01/21 Unknown History Allergies Allergy/AdvReac Type Severity Reaction Status Date / Time No Known Allergies Allergy Verified 06/01/21 06:27 Current Medications Current Medications Generic Name Dose Route Start Last Admin Trade Name Freq PRN Reason Stop Dose Admin Acetaminophen 650 mg 06/01/21 04:49 06/02/21 08:09 Acetaminophen 325 Mg Tablet PO 650 mg Q6H PRN Administration Mild/Mod Pain Or Temp >/= 101 Doxycycline Monohydrate 100 mg 06/02/21 09:35 06/02/21 12:14 Doxycycline 100 Mg Tablet PO 100 mg BID PAMELA Administration Protocol Enoxaparin Sodium 100 mg 06/01/21 23:00 06/02/21 12:13 Enoxaparin 100 Mg/Ml Syringe SUBCUT 100 mg Q12H PAMELA Administration Ceftriaxone Sodium 2,000 mg/ 50 mls @ 100 mls/hr 06/01/21 05:00 06/02/21 06:01 Sodium Chloride IV Infused Q24H PAMELA Infusion Protocol Lisinopril 10 mg 06/02/21 12:00 06/02/21 12:13 Lisinopril 10 Mg Tablet PO 10 mg DAILY PAMELA Administration Pantoprazole Sodium 40 mg 06/01/21 09:00 06/02/21 08:[address] 40 Mg Tablet PO 40 mg DAILY PAMELA Administration PFSH Acute PFSH: Medical History No pertinent family history No pertinent past medical history Surgical History No pertinent past surgical history Vitals/I&O/Wt Last Vital Signs Temp 98.4 F 06/02/21 07:50 Pulse 81 06/02/21 07:50 Resp 18 06/02/21 07:50 BP 155/92 06/02/21 07:50 Pulse Ox 97 06/02/21 07:50 06/01/21 06/02/21 06/02/21 22:59 06:59 14:59 Intake Total 1476.25 / 2456.25 50 / 2506.25 941.25 / 941.25 Output Total 850 / 1250 925 / 2175 Balance 626.25 / 1206.25 -875 / 331.25 941.25 / 941.25 Weight last 48 hrs Weight 134.445 kg Weight 133.265 kg Weight 127.006 kg Weight 127.006 kg Physical Exam Narrative: EXAM NARRATIVE: Constitutional: Awake, comfortable HEENT: Wet mucosa, no jvp, non icteric Lungs: Bilaterally clear without discernible wheeze, rales in all lung zones CVS: S1 S2, no murmurs Abdo: Soft, BS ok Ext 4: Minimal edema, peripheral perfusion with no cyanosis Neurological: Grossly non-focal Data Micro: Micro: Microbiology 06/01/21 07:10 Blood Culture - Pr eliminary Blood NEGATIVE TO JELENA E 06/01/21 07:17 Blood Culture - Pr eliminary Blood NEGATIVE TO JELENA E A&P Additional A&P Information Left-sided renal infarction It is certainly interesting that he has a small PFO with left to right shunt, and would be very circumstantial if it was not involved in the renal infarction that he has. That said, I agree with Dr. Tamayo, and that at this time he needs to simply be monitored, without surgical correction. The MRA was reassuring in that it demonstrated no evidence of underlying vascular disease, which may include dissection, aneurysm, atherosclerosis, large vessel vasculitis etc. to cause renal infarction. He is relatively asymptomatic at this time. His renal function is preserved with a serum creatinine of 1.1 mg/dL I discussed with him the general principles and kidney kindness i.e. avoidance of potentially nephrotoxic substances, control of hypertension diabetes and monitoring for these diseases in the future. From my own perspective he does not need to follow-up with nephrology and I will sign off his care today, however, he may wish to have an echocardiogram periodically to monitor the PFO and the [id number] shunt. Okay for discharge tomorrow from our perspective. 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
[2021-06-02] MEDS: enoxaparin 30 mg/0.3 mL Syringe SUBCUT ×2 (14:00→22:07)
[2021-06-02 17:21] LABS: Glucose Point of Care 111 mg/dL (70-110)
[2021-06-02 20:11] LABS: Glucose Point of Care 189 mg/dL (70-110)
[2021-06-02] MEDS: insulin lispro 100 unit/1 mL SUBCUT (20:41)
[2021-06-03 03:24] VITALS: BP 116/77; PULSE 88; RESP 18; TEMP 37.3; O2SAT 97
[2021-06-03] MEDS: cefTRIAXone 2,000 MG in sodium chloride 0.9% (plus) 50 ML 100 MG IV (05:12)
[2021-06-03 05:20] LABS: Basophils % 0.7 %; Eosinophils # 0.1 10^3/uL (0.0-0.8); Hematocrit 43.9 % (42.0-52.0); Hemoglobin 14.6 g/dL (11.7-16.6); Lymphocytes # 1.6 10^3/uL (0.8-4.8); Lymphocytes % 26.3 %; Mean Corpuscular HGB Conc 33.3 g/dL (30.0-36.0); Mean Corpuscular Hemoglobin 28.4 pg (28.0-34.0); Mean Corpuscular Volume 85.4 fl (80-94); Mean Platelet Volume 8.8 fL (7.4-10.4); Monocytes # 0.6 10^3/uL (0.2-0.9); Monocytes % 10.2 %; Neutrophils # 3.63 10^3/uL (1.8-7.7); Neutrophils % 60.6 %; Nucleated Red Blood Cells % 0 %; Platelet Count 239 10^3/cmm (130-400); Red Blood Count 5.14 10^6/uL (4.1-5.3); Red Cell Distribution Width 13.3 % (12.1-15.1)
[2021-06-03 05:56] LABS: Anion Gap 16.1 (5-19); Blood Urea Nitrogen 11 mg/dL (6-20); Calcium 8.8 mg/dL (8.5-10.5); Carbon Dioxide 23 mmol/L (22-29); Chloride 100 mmol/L (98-107); Glomerular Filtration Rate 86.4 mL/min (90-130); Glucose 118 mg/dL (65-115); Osmolality Calculated 280 mOsm/kg (285-295); Potassium 4.1 mmol/L (3.5-5.1); Sodium 135 mmol/L (136-145)
[2021-06-03 07:07] LABS: Glucose Point of Care 119 mg/dL (70-110)
[2021-06-03 07:18] VITALS: BP 122/86; PULSE 83; RESP 16; TEMP 36.8; O2SAT 94
[2021-06-03] MEDS: doxycycline 100 mg Tablet PO (08:58)
[2021-06-03] MEDS: lisinopril 10 mg Tablet PO (08:58)
[2021-06-03] MEDS: pantoprazole DR 40 mg Tablet PO (08:58)
--- NOTE | 2021-06-03 11:18 | PM.DCS ---
Discharge Providers Date of Admission: 06/01/21 00:02 Date of Discharge: June 03, 2021 Attending Provider at Admission: Jennifer Laura Attending Provider at Discharge: Miguel Angel Aguilera MD Diagnoses at Discharge Discharge Diagnosis (1) Infarction of kidney: Status: Acute (2) Varicose veins of both lower extremities: Status: Acute (3) Sporotrichosis: Status: Acute (4) Glucose intolerance: Status: Acute Reason for Visit Reason for Visit: ABD [facility] Hospital Course Hospital Course HPI done by Dr. Shane History of Present Illness 60-year-old male with no significant past medical history who presented to the hospital with abdominal pain. Acute onset. Primarily left lower quadrant. Noted nausea however no emesis. Subjective fever and chills. Denies chest pain or shortness of breath. Condition noted to have left hand pain, redness, and area of drainage from recent bug bite. He felt it may have been from a spider about 4 days prior. Noted increase in hand swelling as well. Laboratory workup on arrival showed a WBC of 9.8, hemoglobin of 15.6, hematocrit 47.1 and platelet count 240. INR 1.06. Sodium 134, potassium 5.1, chloride 98, bicarb 24, BUN 13 creatinine 1.0. LFTs and urinalysis within normal limits. CT of abdomen pelvis with contrast showed a wedge-shaped regions of hypo enhancement in the left kidney suspected to be renal infarcts. Hospital course Patient was admitted for evaluation and work-up of incidental finding of left renal infarct. Abdominal pain subsided spontaneously. Venous Doppler did reveal left greater saphenous vein/superficial vein thrombosis, patient endorsed previous history of DVT. His kidney function remained normal, during his hospitalization he was treated for left hand cellulitis/sporotrichosis. At the time of discharge she will get doxycycline and itraconazole regimen. Sporotrichosis should be treated for at least 2 weeks and then reevaluated whether he would benefit from full 3-month itraconazole regimen. In that case he will need itraconazole level checked as well. No fever, or leukocytosis, cultures negative. Echo with bubble was obtained which revealed possibility for small PFO, this case was discussed with Dr. Tamayo who recommended against PFO closure device, patient will follow up with Dr. Tamayo after discharge with event monitor. No occult arrhythmia identified during hospitalization. During hospitalization he was diagnosed with type 2 diabetes hemoglobin A1c 6.8, Metformin added, for his hypertension he was started on lisinopril 10 mg daily. Considering renal infarct, small PFO, superficial vein thrombosis decision was made to start anticoagulation, he will get Xarelto 20 mg daily regimen, all questions were answered to patient's satisfaction, pros and cons of anticoagulation discussed with him as well. MR/MR angio abdomen wo/w [id number] IMPRESSION: 1. No filling defects are seen in the left renal artery or segmental renal arteries. This is not optimally evaluated secondary to motion artifact. 2. There is mild left perinephric fluid stranding.Motion artifact on the postcontrast images limits evaluation of the left kidney enhancement however there does seem to be ill-defined hypoenhancement in the regions of wedge-shaped hypoenhancement seen on the prior CT scan. CT/CT abdomen pelvis w con* [id number] IMPRESSION: There are wedge-shaped regions of hypoenhancement in the left kidney. In the setting of sudden onset of left-sided abdominal pain, top differential is renal infarcts. Differential includes renal scarring and pyelonephritis as well. CONCLUSIONS Non occlusive weblike thrombus LEFT GSV below the knee. Remainder of the lower extremity vessels are patent. Physical Exam Narrative: EXAM NARRATIVE: Patient sitting comfortably in his bed Saturating well on room air Abdomen soft nontender bowel sound present Bilateral breath sounds without adventitious rhonchi or crackles EOMI, PERRLA no neurological deficits Left leg with varicose veins slightly more swollen as compared to right leg No neurological/focal deficits S1, S2, no significant murmur appreciated Discharge Data Data Completed and Pending: Completed Studies During Hospitalization Category Date Time Status CT abdomen pelvis w con* [id number] Urge nt Cat Scan 05/31/21 20:16 Completed MR angio abdomen wo/w [id number] Stat MRI 06/01/21 14:54 [place] [id number] Routin e Ultrasound 06/02/21 06:00 Completed CV. echo complete * [id number] Routine Ultrasound 06/01/21 08:40 Completed CV. echo lmt wo/w bubble [id number] Urge nt Ultrasound 06/01/21 14:59 Completed Pending at discharge Category Date Time Status DOMI Screen w/ Ref steven Routine Lab 06/01/21 07:17 Received Anti-Neutrophil C ytoplasmic AB Rout ine Lab 06/01/21 07:17 Received Blood Culture Rou chloé Lab 06/01/21 07:10 Results Erythrocyte Sedim entation Rate Rout ine Lab 06/01/21 04:27 Received Labs from last 24 hours 06/03/21 06/03/21 06/03/21 06:34 04:26 04:26 WBC 6.0 RBC 5.14 Hgb 14.6 Hct 43.9 MCV 85.4 MCH 28.4 MCHC 33.3 RDW 13.3 Plt Count 239 MPV 8.8 Neut % (Auto) 60.6 Lymph % (Auto) 26.3 Calloway % (Auto) 10.2 Eos % (Auto) 2.0 Baso % (Auto) 0.7 Neut # (Auto) 3.63 Lymph # (Auto) 1.6 Calloway # (Auto) 0.6 Eos # (Auto) 0.1 Baso # (Auto) 0.0 Nucleated RBC % (a uto) 0 Nucleated RBCs # 0.0 ESR Sodium 135 L Potassium 4.1 Chloride 100 Carbon Dioxide 23 Anion Gap 16.1 BUN 11 Creatinine 0.9 GFR Calculation 86.4 L Glucose 118 H POC Glucose 119 H Calculated Osmolal ity 280 L Calcium 8.8 06/02/21 06/02/21 06/02/21 19:22 17:11 04:27 WBC RBC Hgb Hct MCV MCH MCHC RDW Plt Count MPV Neut % (Auto) Lymph % (Auto) Calloway % (Auto) Eos % (Auto) Baso % (Auto) Neut # (Auto) Lymph # (Auto) Calloway # (Auto) Eos # (Auto) Baso # (Auto) Nucleated RBC % (a uto) Nucleated RBCs # ESR Pending Sodium Potassium Chloride Carbon Dioxide Anion Gap BUN Creatinine GFR Calculation Glucose POC Glucose 189 H 111 H Calculated Osmolal ity Calcium Vitals: Last Vital Signs Temp 98.3 F 06/03/21 07:18 Pulse 83 06/03/21 07:18 Resp 16 06/03/21 07:18 BP 122/86 06/03/21 07:18 Pulse Ox 94 06/03/21 07:18 Discharge Plan Discharge Patient Disposition: Home Condition: Stable Prescriptions: New doxycycline monohydrate 100 mg Tablet 100 mg PO BID 10 Days Qty: 20 RF: 0 lisinopril 10 mg Tablet 10 mg PO DAILY 30 Days Qty: 30 RF: 1 itraconazole 100 mg Capsule 200 mg PO DAILY 14 Days Qty: 14 RF: 0 metformin 500 mg tablet 500 mg PO DAILY Qty: 30 RF: 0 rivaroxaban 20 mg tablet 20 mg PO DAILY Qty: 30 RF: 3 Discharge Orders: Discharge Order (Routine); Ordered 06/03/21 Ordered By: Miguel Angel Aguilera Other Ambulatory Orders: CA cardiac event monitor (Routine) Timeframe: 14 Day Facility: [facility] - Location: Cardiac Diagnostic Laboratory Ordered By: Miguel Angel Aguilera Referrals: Miguel Angel Tamayo MD [Physician] - 1 week Discharge Diet: Cardiac Discharge Activity: Increase activity as tolerated Patient Instructions: Type 2 Diabetes, Diabetes and Diet, Type 2 Diabetes in Adults: New Diagnosis (GEN), Diabetes and Your Skin (DC), Type 2 Diabetes Management for Adults (GEN), Opioid Safety, Pyelonephritis, Sporotrichosis Discharge Attestations Time Spent in Discharge Care*: less than 30 min Quality Metrics Clinical Quality Measures During this hospital stay, did patient experience: None Coding Level of Care Code Acute Chg FW DC note Diagnoses Infarction of kidney N28.0 Varicose veins of both lower extremities I83.93 Sporotrichosis B42.9 Glucose intolerance E74.39
[2021-06-03 11:26] VITALS: BP 127/85; PULSE 83; RESP 16; TEMP 36.7; O2SAT 98
[2021-06-03 11:48] LABS: Glucose Point of Care 127 mg/dL (70-110)
[2021-06-03] MEDS: enoxaparin 30 mg/0.3 mL Syringe SUBCUT (11:58)
[2021-06-03] MEDS: enoxaparin 100 mg/mL Syringe SUBCUT (11:58)
[2021-06-03 14:00] VITALS: PULSE 85
--- NOTE | 2021-06-03 15:14 | PC.NURSE ---
Discharge Note Patient discharged to home via private vehicle accompanied by his , Gay. Discharge instructions reviewed with patient and his . Mobile pharmacy medications and/or prescriptions sent to [facility] in [place], [place]. Belongings/home medications returned.
[2021-06-03 15:18] VITALS: PULSE 85
[2021-06-03 16:57] LABS: Erythrocyte Sedimentation Rate 9 mm/hr (0-10)
[2021-06-04 12:12] LABS: Anti-Nuclear Antibody Pattern Nuclear, Speckled; Anti-Nuclear Antibody Screen POSITIVE (NEGATIVE)
--- NOTE | 2021-06-11 10:55 | PC.SOCIAL ---
Addendum entered by Yumiko oPrtillo RN 06/11/21 10:57: Notified clinic of incoming fax. Original Note: Referral sent via fax to Rheumatology clinic per Dr Alfred Request along with records. Confirmation received that fax was transmitted successfully.
== END 2021-06-03 15:15 | disposition home or self-care (01) | DRG 699 ==
LOC: ER 23:35 → MEDSURG 06-01 00:01
PROVIDERS: Internal Medicine; Admitting Provider Hospitalist; Emergency Provider Emergency Medicine; Visit Provider Internal Medicine
DX: N28.0 Ischemia and infarction of kidney (principal); L03.114 Cellulitis of left upper limb; I82.812 Embolism and thrombosis of superficial veins of left lower extremity; Q21.1 Atrial septal defect; I10 Essential (primary) hypertension; I83.93 Asymptomatic varicose veins of bilateral lower extremities; B42.9 Sporotrichosis, unspecified; E74.39 Other disorders of intestinal carbohydrate absorption; Z86.718 Personal history of other venous thrombosis and embolism; E11.9 Type 2 diabetes mellitus without complications
CPT/HCPCS: 36415; 36416; 74177; 74185; 80048; 80053; 80061; 81001; 81003; 82550; 82962; 83036; 83516; 83690; 83735; 84100; 84145; 84443; 85025; 85610; 85651; 85999; 86038; 86140; 87040; 93005; 93306; 93970; 96372; 96374; 96375; 99285; A9577; C8924; J0696; J1650; J1815; J2270; J2405; J7030; Q9967

== ENCOUNTER → 2021-07-02 10:04 | Outpatient (BNVA) | payer BC, SELFPAY | PROVIDERS: Visit Provider Internal Medicine | DX: R76.8 Other specified abnormal immunological findings in serum (principal); M25.50 Pain in unspecified joint; Z79.01 Long term (current) use of anticoagulants; Z11.59 Encounter for screening for other viral diseases; I82.890 Acute embolism and thrombosis of other specified veins | CPT/HCPCS: 99204 ==

== ENCOUNTER 2021-07-02 11:10 | Outpatient (CLI) | payer BC, SELFPAY ==
--- NOTE | 2021-07-02 11:18 | XR_ITS ---
WS: [id number] RIGHT FOOT: 2 VIEW(S) TECHNIQUE: AP and lateral. HISTORY: M25.50 - Pain in unspecified joint COMPARISON: None available. No acute fracture or dislocation. Hammertoe deformities. Mild narrowing of the interphalangeal joints . No erosions. Os navicularis. Normal tarsal/metatarsal alignment. No soft tissue abnormality or bone destruction. XR/XR foot RT 2V [id number] IMPRESSION: Mild hammertoe deformities. No erosions.
--- NOTE | 2021-07-02 11:18 | XR_ITS ---
WS: [id number] LEFT FOOT: 2 VIEW(S) TECHNIQUE: AP and lateral. HISTORY: M25.50 - Pain in unspecified joint COMPARISON: None available. No acute fracture or dislocation. Normal tarsal/metatarsal alignment. Mild interphalangeal joint space narrowing at the first phalanx. Os navicularis. No soft tissue abnormality or bone destruction. XR/XR foot LT 2V [id number] IMPRESSION: No erosions or significant osteoarthritic change.
--- NOTE | 2021-07-02 11:18 | XR_ITS ---
WS: [id number] RIGHT SHOULDER: 2 VIEW(S) TECHNIQUE: Internal and external rotation. HISTORY: rheumatoid arthritis. Chronic joint pain. COMPARISON: None available. No fracture or dislocation or soft tissue abnormality. Mild narrowing of the AC joint. Visualized RIGHT lung is clear. XR/XR shoulder RT min 2V* [id number] IMPRESSION: Mild AC joint narrowing. No erosions.
--- NOTE | 2021-07-02 11:18 | XR_ITS ---
WS: [id number] RIGHT ELBOW: 3 VIEW(S) TECHNIQUE: AP, oblique and lateral. HISTORY: R76.8 - Other specified abnormal immunological findings i... COMPARISON: None available. No acute fractures or dislocation. No joint effusion. No soft tissue abnormality. XR/XR elbow RT min 3V* [id number] IMPRESSION: Normal RIGHT elbow.
--- NOTE | 2021-07-02 11:18 | XR_ITS ---
WS: [id number] LEFT ELBOW: 3 VIEW(S) TECHNIQUE: AP, oblique and lateral. HISTORY: R76.8 - Other specified abnormal immunological findings i... COMPARISON: None available. No acute fractures or dislocation. No joint effusion. No soft tissue abnormality. XR/XR elbow LT min 3V* [id number] IMPRESSION: Normal LEFT elbow.
--- NOTE | 2021-07-02 11:18 | XR_ITS ---
WS: [email or web address] LEFT SHOULDER: 2 VIEW(S) TECHNIQUE: Internal and external rotation. HISTORY: M06.9 - Rheumatoid arthritis, unspecified COMPARISON: None available. No fracture or dislocation or soft tissue abnormality. Very small osteophytes and joint space narrowing at the AC joint. XR/XR shoulder LT min 2V* [id number] IMPRESSION: Mild AC joint arthritis.
--- NOTE | 2021-07-02 11:18 | XR_ITS ---
WS: [id number] LEFT HAND: 2 VIEW(S) TECHNIQUE: PA and lateral. HISTORY: R76.8 - Other specified abnormal immunological findings COMPARISON: None available. No acute fracture or dislocation. No soft tissue or bone abnormality. XR/XR hand LT 2V [id number] IMPRESSION: Normal LEFT hand.
--- NOTE | 2021-07-02 11:18 | XR_ITS ---
WS: [id number] RIGHT HAND: 2 VIEW(S) TECHNIQUE: PA and lateral. HISTORY: Chronic joint pain. COMPARISON: None available. No acute fracture or dislocation. No soft tissue or bone abnormality. Lytic area in the scapholunate may be a small cyst. No fracture. XR/XR hand RT 2V [id number] IMPRESSION: No significant osteoarthritic changes and no erosions.
--- NOTE | 2021-07-02 11:18 | XR_ITS ---
WS: [id number] SACROILIAC JOINTS TECHNIQUE: AP and oblique imaging is submitted. HISTORY: L40.9 - Psoriasis, unspecified COMPARISON: None available. Moderate narrowing and sclerotic changes involving the SI joints bilaterally. There is increased scle rosis along the inferior third of the SI joints. Small erosions. Partial fusion inferiorly. No soft tissue abnormality. XR/XR sacroiliac jts m 3V [id number] IMPRESSION: Bilateral narrowing and sclerosis and erosions involving the SI joints. Typical ly there is widening of the SI joints with psoriasis. The inferior SI joints ar e narrowed and partially fused.
== END 2021-07-02 11:11 | disposition home or self-care (01) ==
PROVIDERS: Visit Provider Internal Medicine
DX: M25.50 Pain in unspecified joint (principal); N28.0 Ischemia and infarction of kidney; R19.5 Other fecal abnormalities; R76.8 Other specified abnormal immunological findings in serum; Z79.01 Long term (current) use of anticoagulants; M06.9 Rheumatoid arthritis, unspecified; L40.9 Psoriasis, unspecified
CPT/HCPCS: 72202; 73030; 73080; 73120; 73620

== ENCOUNTER → 2021-07-14 10:26 | Outpatient (BNVA) | payer BC, SELFPAY | PROVIDERS: Visit Provider Internal Medicine | DX: R76.8 Other specified abnormal immunological findings in serum (principal); M25.50 Pain in unspecified joint; M53.3 Sacrococcygeal disorders, not elsewhere classified; Z79.01 Long term (current) use of anticoagulants | CPT/HCPCS: 86812; 99214 ==

== ENCOUNTER 2021-07-25 13:27 | Outpatient (CLI) | payer BC, SELFPAY ==
--- NOTE | 2021-07-25 13:45 | XR_ITS ---
WS: [email or web address] Exam: XR lumbar spine 2-3V* [id number] Date/Time of Exam: 07/25/2021 1:45 PM Reason For Exam: M53.3 - Sacrococcygeal disorders, not elsewhere classified No fracture or dislocation noted. Marked degenerative change of the L5-S1 disc with grade 1 spondylol isthesis of L5 on S1. Remaining disc spaces are relatively well maintained. Facet arthropathy at L4-5 and L5-S1. Mild levoscoliosis. XR/XR lumbar spine 2-3V* [id number] IMPRESSION: 1. Marked disc degeneration at L5-S1 with the grade 1 spondylolisthesis of L5 o n S1. 2. No fracture or malalignment. 3. Degenerative changes and mild scoliosis.
== END 2021-07-25 13:28 | disposition home or self-care (01) ==
PROVIDERS: Visit Provider Internal Medicine
DX: M53.3 Sacrococcygeal disorders, not elsewhere classified (principal); M25.50 Pain in unspecified joint; R76.8 Other specified abnormal immunological findings in serum; Z79.01 Long term (current) use of anticoagulants; M41.86 Other forms of scoliosis, lumbar region
CPT/HCPCS: 72100

== ENCOUNTER → 2021-08-28 12:59 | Outpatient (BNVA) | payer BC, SELFPAY | PROVIDERS: Visit Provider Surgery | DX: Z20.822 Contact with and (suspected) exposure to COVID-19 (principal) | CPT/HCPCS: 87635 ==

== ENCOUNTER 2021-09-03 06:38 | Day surgery (SDC) | payer BC, SELFPAY ==
[2021-09-01 12:07] VITALS: BMI 35.9
--- NOTE | 2021-09-03 06:29 | P.HP_ITS ---
Same Day Surgery H&P Indication for Procedure/HPI DATE OF PROCEDURE: September 03, 2021 CHIEF COMPLAINT/INDICATIONFOR SURGICAL PROCEDURE: FIT + /colonoscopy PREOP DIAGNOSIS: colonoscopy PLANNED PROCEDURE: Operation Date: 09/03/21 07:30 Proposed Procedures p Colonoscopy 46090 Z12.11(Not Applicable) - Russel Thomas MD Medications/Allergies* Home Medications Medication Instructions Recorded Confirmed Type itraconazole 100 mg capsule 100 mg PO BID cap 07/02/21 09/01/21 History lisinopril 20 mg PO DAILY 09/01/21 09/01/21 History Allergies/Adverse Reactions Allergy/AdvReac Type Severity Reaction Status Date / Time No Known Allergies Allergy Verified 07/14/21 10:48 Pertinent History/Comorbid Conditions* Medical History (Updated 07/14/21 @ 11:23 by Kim Rivera MD) Glucose intolerance Infarction of kidney PFO (patent foramen ovale) Varicose veins of both lower extremities Surgical History (Updated 06/30/21 @ 11:31 by Russel Thomas MD) Status post laparoscopic cholecystectomy Family History (Updated 07/02/21 @ 10:28 by Lora Ochoa LPN) Rheumatoid arthritis Unknown Mass of heart valve Father Diabetes Mother Hypertension Father Denies family history of Lupus Heart attack Social History Smoking and tobacco status: never smoked Alcohol intake: current Alcohol intake frequency: few times a month History of recent travel: No Pertinent Exam Findings alert, oriented x 3 and regular rate & rhythm Recommendations Surgery/Procedure today Coding Level of Care Code Acute [employer] for [employer] [place]
[2021-09-03 06:55] VITALS: BP 164/121; PULSE 84; RESP 18; TEMP 36.1; O2SAT 99
[2021-09-03] MEDS: sodium chloride 0.9% 1,000 ML 30 ML IV (07:09)
--- NOTE | 2021-09-03 07:43 | ANES.PREANE2 ---
Pre-Anesthetic Assessment Pre-Anesthetic Assessment: Height/Weight: Height 1.88 m Weight 127.006 kg Temp Pulse Resp BP Pulse Ox 97.0 F L 84 18 164/121 99 09/03/21 06:55 09/03/21 06:55 09/03/21 06:55 09/03/21 06:55 09/03/21 06:55 Preop Diagnosis: diagnostic Proposed Procedure: Operation Date: 09/03/21 07:30 Proposed Procedures p Colonoscopy 45944 Z12.11(Not Applicable) - Russel Thomas MD Familial anesthetic complications: none Was Beta Mk taken within 24 hours: N/A Was Clonidine taken within 24 hours: N/A Last intake: Intake Last Liquid Date 09/02/21 Last Liquid Time 23:30 Last Solid Date 09/01/21 Last Solid Time 19:00 Last Intake: 23:30 Social: Social History: No alcohol and No tobacco Exam: Pre-Anes Outpt Exam: alert, oriented x 3, clear to auscultation bilaterally and regular rate & rhythm Airway: Submandibular: WNL Cervical ROM: WNL MP: 2 Dentition: Full Pulmonary: Pulmonary: None reported CV/HEM: CV/HEM: DVT (Years ago) and HTN Comments: PFO. Infarcted L kidney May 2021 : : None reported Hepatic: Hepatic: None reported GI: GI: None reported Metabolic: Metabolic: Morbid obesity Musc/skel: Musc/skel: Lower Back Pain and OA/DJD Neuropsych: Neuropsych: None reported Anesthetic Plan: ASA status: 3 Anesthesia: MAC Risk of > 500 ml blood loss (7ml/kg in children): No Medications/Allergies Current Medications: Current Medications Generic Name Dose Route Start Last Admin Trade Name Freq PRN Reason Stop Dose Admin Sodium Chloride 1,000 mls @ 30 ml s/hr 09/03/21 06:45 09/03/21 07:09 Sodium Chloride 0.9% IV 09/04/21 06:44 30 mls/hr .Q24H PAMELA Administration PFSH Anesthesia PFSH: Medical History (Updated 07/14/21 @ 11:23 by Kim Rivera MD) Glucose intolerance Infarction of kidney PFO (patent foramen ovale) Varicose veins of both lower extremities Surgical History (Updated 06/30/21 @ 11:31 by Russel Thomas MD) Status post laparoscopic cholecystectomy Family History (Updated 07/02/21 @ 10:28 by Lora Ochoa LPN) Father Hypertension Mass of heart valve Mother Diabetes Unknown Rheumatoid arthritis Denies family history of Lupus Heart attack Social History (Updated 07/14/21 @ 10:49 by Lora Ochoa LPN) Smoking and tobacco status: never smoked Alcohol intake: current Alcohol intake frequency: few times a month History of recent travel: No Data Anesthesia Cardiac Studies: Echocardiogram 06/01/21
[2021-09-03 08:20] VITALS: BP 135/98; PULSE 82; RESP 16; TEMP 36.1; O2SAT 97
[2021-09-03 08:35] VITALS: BP 141/98; PULSE 76; RESP 18; O2SAT 95
--- NOTE | 2021-09-03 14:10 | ANE.PACU2 ---
Inpatient post-anesthesia follow up: Airway intact: Yes Vital signs: Temperature 97 F Pulse Rate 76 Respiratory Rate 18 Blood Pressure 141/98 Pulse Oximetry 95 Oxygen Delivery Me thod Room Air Oxygen Flow Rate 2 Fraction of Inspir ed Oxygen Hydration adequate: Yes Nausea and vomiting: No Pain level: 1 Mental status: Baseline
== END 2021-09-03 08:58 | disposition home or self-care (01) ==
PROVIDERS: PCP Family Medicine; Visit Provider Surgery
PROC: 0DJD8ZZ Inspection of Lower Intestinal Tract, Via Natural or Artificial Opening Endoscopic (ICD-10-PCS; CPT 45378; principal; 2021-09-03 07:30)
DX: Z12.11 Encounter for screening for malignant neoplasm of colon (principal); Z82.49 Family history of ischemic heart disease and other diseases of the circulatory system; Z83.3 Family history of diabetes mellitus; D12.2 Benign neoplasm of ascending colon; D12.4 Benign neoplasm of descending colon; K57.30 Diverticulosis of large intestine without perforation or abscess without bleeding; K64.8 Other hemorrhoids; Z86.718 Personal history of other venous thrombosis and embolism; I10 Essential (primary) hypertension; E66.01 Morbid (severe) obesity due to excess calories; Z68.35 Body mass index [BMI] 35.0-35.9, adult; M19.90 Unspecified osteoarthritis, unspecified site
CPT/HCPCS: 45380; 45385; 88305; J2704; J7030

== ENCOUNTER 2023-01-01 14:14 | Outpatient (CLI) | payer BC, SELFPAY ==
--- NOTE | 2023-01-01 14:15 | USCV_ITS ---
Ten Fournier Age: 62 Gender: M : 1960 Exam Date: 01/01/2023 14:34 Ordering Phys: Bob Pinedo M.D ([email or web address]) Technologist: CT Exam Location: [facility] – [place] Indication: leg pain Risk Factors: Previous Vascular Surgery: RIGHT LEFT BP: 95.00 / 62.00 BP: 91.00/ 60.00 Waveform Velocity (cm/s) Velocity (cm/s) Waveform Triphasic 45.5 Iliac Prox 46.5 Triphasic Triphasic 41.3 Iliac Mid 41.6 Triphasic Triphasic 38.7 Iliac Distal 36.9 Triphasic Triphasic 30.0 LEVER MILLER 42.6 Triphasic Triphasic 41.7 SFA Prox 51.8 Triphasic Triphasic 56.2 SFA Mid 59.8 Triphasic Triphasic 44.1 SFA Dist 43.5 Triphasic Triphasic 34.3 POP 28.4 Triphasic Triphasic 39.9 RN OPERATING ROOM 49.6 Triphasic Triphasic 46.4 DPA 52.2 Triphasic 1.0 ARUN 1.0 FINDINGS Resting ARUN 1.0 bilaterally. Normal arterial Doppler waveforms Normal Doppler flow velocities CONCLUSIONS No evidence of any significant arterial obstruction, based on the above findings. Dr Jose Rodrigez MD [facility] (Electronically Signed) Final Date: 01 Jan 2023 17:26 S
== END 2023-01-01 14:15 | disposition home or self-care (01) ==
PROVIDERS: PCP Family Medicine; Visit Provider Internal Medicine
DX: M79.605 Pain in left leg (principal); M79.604 Pain in right leg
CPT/HCPCS: 93925

== ENCOUNTER 2023-06-07 13:21 | Outpatient (CLI) | payer BC, SELFPAY ==
--- NOTE | 2023-06-07 13:35 | XR_ITS ---
WS: [email or web address] Exam: XR cervical spine fl/ex [id number] Date/Time of Exam: 06/07/2023 1:54 PM Reason For Exam: M51.16 - Intervertebral disc disorders with radiculopathy... Exam: XR cervical spine fl/ex [id number] Date/Time of Exam: 06/07/2023 1:54 PM Reason For Exam: M51.16 - Intervertebral disc disorders with radiculopathy... No flexion or extension instability. In the neutral position there is straightening of the C-spine. T here is mild spondylosis at C5-6. Posterior elements are intact. Normal paraspinal soft tissue struct ures. The odontoid is intact as visualized. IMPRESSION: 1. No flexion or extension instability identified. 2. There is some straightening of the mid and upper cervical spine. Minimal degenerative changes as a tracy.
--- NOTE | 2023-06-07 13:35 | XR_ITS ---
WS: [email or web address] Exam: XR thoracic spine 3V* [id number] Date/Time of Exam: 06/07/2023 1:54 PM Reason For Exam: M51.16 - Intervertebral disc disorders with radiculopathy... No acute fracture or dislocation. Prominent bridging anterior osteophytes at T8-9 and T9-10. There is mild dextroscoliosis of the T-spine. Normal paraspinal soft tissues. IMPRESSION: 1. No fracture or malalignment. 2. Spondylosis and mild dextroscoliosis.
== END 2023-06-07 13:22 | disposition home or self-care (01) ==
PROVIDERS: PCP Family Medicine; Visit Provider Internal Medicine
DX: M51.16 Intervertebral disc disorders with radiculopathy, lumbar region (principal); M47.894 Other spondylosis, thoracic region
CPT/HCPCS: 72040; 72072